=== PATIENT | male | born 1960 | race Caucasian/White ===

== ENCOUNTER 2019-07-22 22:46 | Emergency (ER) | payer MEDICARE ==
[~2019-07-22] VITALS: Ht 170.2 cm; Wt 122.5 kg
[2019-07-22 22:56] VITALS: BP 138/84; PULSE 92; RESP 20; Ht 170.2 cm; Wt 122.5 kg
== END 2019-07-22 23:34 | disposition home or self-care (01) ==
LOC: E/R 22:46
DX: M79.631 Pain in right forearm (principal); I10 Essential (primary) hypertension; E11.9 Type 2 diabetes mellitus without complications
CPT/HCPCS: 99282